=== PATIENT | female | born 1975 | race Two or more races ===

== ENCOUNTER 2022-01-16 07:28 | Outpatient (CLI) | payer OTHER ==
[~2022-01-16 07:28] MED LIST: NEURONTIN300 MG; ZANAFLEX2 MG
== END 2022-01-16 07:29 | disposition home or self-care (01) ==
LOC: NUCLEAR 07:28
PROVIDERS: ATTEND Internal Medicine Cardiovascular Disease
DX: E03.8 Other specified hypothyroidism (principal)

== ENCOUNTER 2022-05-22 14:29 | Outpatient (CLI) | payer OTHER | END 2022-05-22 14:57 | disposition home or self-care (01) | LOC: LAB 14:29 | PROVIDERS: ATTEND Internal Medicine Cardiovascular Disease | DX: R50.9 Fever, unspecified (principal); B34.9 Viral infection, unspecified; E11.9 Type 2 diabetes mellitus without complications; H66.90 Otitis media, unspecified, unspecified ear ==

== ENCOUNTER 2022-07-14 13:11 | Outpatient (CLI) | payer OTHER | END 2022-07-14 13:14 | disposition home or self-care (01) | LOC: NUCLEAR 13:11 | PROVIDERS: ATTEND Internal Medicine Cardiovascular Disease | DX: M81.0 Age-related osteoporosis without current pathological fracture (principal) ==